=== PATIENT | male | born 1940 | race African-American/Black ===

== ENCOUNTER → 2017-04-29 | Outpatient (CLI) | payer OTHER, BC ==
[~2017-04-29] MED LIST: ACETAMINOPHEN325 M1 PO; AUGMENTIN 875875 M1 PO; CHLORPROMAZINE25 M1 PO; CIPROFLOXACIN500 M3 PO; COLACE100 MG PO; GLYCOLAX POWDER17 G1 PO; HYDROCODON-ACE1 EAC7 PO; K-DUR 20 MEQ T20 MEQ PO; NORVASC 2.5 MG2.5 M1 PO
== END ==
LOC: RAD 08:51
DX: R10.9 Unspecified abdominal pain (principal); Z87.01 Personal history of pneumonia (recurrent)

== ENCOUNTER → 2018-09-15 | Outpatient (CLI) | payer OTHER, BC | LOC: RAD 10:42 | DX: M48.07 Spinal stenosis, lumbosacral region (principal); M41.86 Other forms of scoliosis, lumbar region ==

== ENCOUNTER → 2018-09-22 | Outpatient (CLI) | payer OTHER, BC | LOC: MRI 14:42 | DX: M47.26 Other spondylosis with radiculopathy, lumbar region (principal); M51.16 Intervertebral disc disorders with radiculopathy, lumbar region; M25.78 Osteophyte, vertebrae; M48.062 Spinal stenosis, lumbar region with neurogenic claudication ==

== ENCOUNTER 2021-07-18 10:27 | Emergency (ER) | payer OTHER ==
[~2021-07-18] VITALS: Ht 180.3 cm; Wt 93.0 kg
[2021-07-18] MEDS ORDERED: MELOXICAM15 MG PO (10:31)
[2021-07-18] MEDS ORDERED: TRAMADOL 50 MG50 MG PO (10:31)
[2021-07-18] MEDS ORDERED: NORFLEX100 MG PO (11:42)
[2021-07-18 11:47] VITALS: BP 150/88
[2021-07-18] MEDS ORDERED: TIZANIDINE HCL2 M1 PO (12:30)
[2021-07-18] MEDS ORDERED: FLEXERIL PO (13:02)
== END 2021-07-18 11:47 | disposition home or self-care (01) ==
LOC: ER 10:27
DX: M25.551 Pain in right hip (principal); M19.90 Unspecified osteoarthritis, unspecified site; I10 Essential (primary) hypertension; E78.00 Pure hypercholesterolemia, unspecified; Z85.46 Personal history of malignant neoplasm of prostate

== ENCOUNTER → 2021-09-14 | Outpatient (CLI) | payer OTHER ==
[~2021-09-14] MED LIST changes: +FLEXERIL PO; +MELOXICAM15 MG PO; +NORFLEX100 MG PO; +TIZANIDINE HCL2 M1 PO; +TRAMADOL 50 MG50 MG PO
== END ==
LOC: ULTRA 09-12 10:48
PROVIDERS: ATTEND Internal Medicine Rheumatology
DX: M25.551 Pain in right hip (principal); M70.61 Trochanteric bursitis, right hip; M70.62 Trochanteric bursitis, left hip; Z79.899 Other long term (current) drug therapy